=== PATIENT | male | born 1945 | race Caucasian/White ===

== ENCOUNTER → 2020-07-09 11:36 | Outpatient (CLI) | payer MEDICARE, SELFPAY ==
--- NOTE | 2020-07-09 11:57 | DI.CT.S_ITS ---
PROCEDURE: CT ABDOMEN PELVIS WO CON INDICATIONS: Flaccid neuropathic bladder, not elsewhere classified TECHNIQUE: Noncontrast 5 mm thick sections acquired from the diaphragms to the symphysis. 5 mm coronal and sagittal reformats were then performed. For radiation dose reduction, the following was used: automated exposure control, adjustment of mA and/or kV according to patient size. COMPARISON: None. FINDINGS: Image quality: Excellent. ABDOMEN: Lung bases: Lung bases are clear. Heart size is normal. Note is made of several areas of smoothly marginated focal pleural thickening involving the lung bases bilaterally left slightly greater than right. These are not calcified at this time and have an appearance most likely representing pleural plaquing. Solid organs: Liver is normal in size. Gallbladder is partially contracted and appears free of inflammation or calcified stone. . Pancreas is normal in contours. Spleen is normal in size. No adrenal nodules. Kidneys are normal in size, without hydronephrosis or nephrolithiasis. There are several renal cortical water density cysts, right greater than left. These are small to moderate in size. Peritoneum and bowel: Unenhanced bowel loops demonstrate normal wall thickness and caliber. No free fluid or air. Nodes and vessels: No retroperitoneal or mesenteric adenopathy by size criteria. Aorta and inferior vena cava are normal in caliber. Miscellaneous: No ventral hernias. PELVIS: Genitourinary: Bladder wall thickness is normal. Miscellaneous: No inguinal hernias or adenopathy. No evidence of appendicitis. No bladder distension seen. No distal ureteral or bladder calculus found. Bones: No suspicious bony lesions. No vertebral body compression fractures. IMPRESSION: No urinary tract abnormality seen that would suggest presence of urinary tract stones or inflammation. No urinary tract distension is found. Incidental note is made of several plaque-like areas of focal smooth thickening of the pleural surfaces within the lower chest bilaterally. Dictated by: Toney Johnson M.D. on 07/09/2020 at 13:34 Approved by: Toney Johnson M.D. on 07/09/2020 at 13:37
== END ==
PROVIDERS: Family Provider Family Medicine; PCP Family Medicine; Referring Provider Family Medicine; Visit Provider Family Medicine
DX: N31.2 Flaccid neuropathic bladder, not elsewhere classified (principal); K64.1 Second degree hemorrhoids
CPT/HCPCS: 74176; 99213

== ENCOUNTER → 2020-11-19 12:48 | Outpatient (CLI) | payer MEDICARE, SELFPAY ==
[2020-11-19 19:14] LABS: Bacteria Urine None Seen; WBC Urine None Seen (0-5/HPF)
[2020-11-19 19:19] LABS: INR 3.3 (0.9-1.3); Prothrombin Time 38.2 SECONDS (10.1-12.7)
[2020-11-19 19:27] LABS: Add Manual Diff / Slide Review NO; Basophils Absolute Auto 0 /uL (0-100); Basophils Percent Auto 0.7 % (0-2); Eosinophils Absolute Auto 100 /uL (0-450); Hematocrit 53.9 % (41-53); Hemoglobin 17.9 g/dL (13.5-17.5); Lymphocytes Absolute Auto 1300 /uL (1100-4500); Lymphocytes Percent Auto 22.1 % (25-40); Mean Corpuscular HGB Conc 33.2 % (30-36); Mean Corpuscular Volume 96.4 fL (80-100); Monocytes Absolute Auto 500 /uL (0-900); Monocytes Percent Auto 8.2 % (3-14); Neutrophils Absolute Auto 4100 /uL (1500-7000); Platelet Count 193 X10^3/uL (150-400); Red Blood Cell Count 5.59 X10^6/uL (4.5-5.9); Red Cell Distribution Width 13.6 % (11.6-14.8); White Blood Cell Count 6.1 X10^3/uL (4.5-11.0)
[2020-11-19 19:31] LABS: Appearance Urine UA CLEAR; Bilirubin Urine UA NEGATIVE (NEGATIVE); Color Urine UA YELLOW; Glucose Urine UA NEGATIVE (Negative); Ketones Urine UA TRACE (NEGATIVE); Leukocyte Esterase Urine UA NEGATIVE (NEGATIVE); Nitrite Urine UA NEGATIVE (Negative); Occult Blood Urine UA 3+ (Negative); Protein Urine UA 1+ (Negative); Specific Gravity Urine UA >=1.030 (1.000-1.035); Urobilinogen Urine UA 0.2 E.U./dL (0.2)
[2020-11-19 19:36] LABS: Alanine Aminotransferase 27 IU/L (<50); Albumin 4.4 g/dL (3.5-5.0); Albumin Globulin Ratio 1.6 (1.0-2.8); Alkaline Phosphatase 87 U/L (38-126); Aspartate Aminotransferase 28 IU/L (17-59); BUN Creatinine Ratio 33.3 (6-22); Bilirubin Total 1.9 mg/dL (0.2-1.3); Blood Urea Nitrogen 30 mg/dL (9-20); C-Reactive Protein Quant < 0.5 mg/dL (<1.0); Carbon Dioxide 25 mmol/L (22-32); Chloride 103 mmol/L (98-107); Estimated Glomerular Filt Rate > 60.0 mL/min (>60); Globulin 2.8 g/dL (1.7-4.1); Glucose 87 mg/dL (80-110); HEMOLYSIS < 15 (0-50); Lactate Dehydrogenase 440 U/L (313-618); Potassium 4.5 mmol/L (3.4-5.1); Sodium 137 mmol/L (137-145); Total Protein 7.2 g/dL (6.3-8.2)
[2020-11-19 19:42] LABS: Calcium Oxalate Crystals Urine Few; Culture Indicated Urine Cult Not Indicated; Mucus Urine 1+ (Negative); RBC Urine 10-30/HPF (0-5/HPF)
[2020-11-19 20:04] LABS: Thyroid Stimulating Hormone 0.558 uIU/mL (0.47-4.68)
[2020-11-19 20:15] LABS: Hemoglobin A1C% w Est Avg Glu 5.7 % (4.0-6.0)
[2020-11-19 20:25] LABS: Erythrocyte Sedimentation Rate 1 MM/HR (0-15)
[2020-11-21 14:07] LABS: Free Kappa Lt Chains, Serum 22.2 mg/L (3.3-19.4); Free Lambda Lt Chains,Serum 14.2 mg/L (5.7-26.3)
[2020-11-23 16:49] LABS: ANA Screen, IFA Negative (.)
[2020-11-23 17:08] LABS: Immunoglobulin E 187 IU/mL (6-495)
[2020-11-24 13:44] LABS: Alpha-1 Globulin, Ur 1.9 % (.); Beta Globulin, Ur 52.7 % (.); Gamma Globulin, Ur 14.3 % (.); Immunoglobulin A, Serum 186 mg/dL (61-437); Immunoglobulin G,Serum 849 mg/dL (603-1613); Immunoglobulin M, Serum 51 mg/dL (15-143); M-Spike % Comment: % (Not Observed); Urine Total Protein 7.2 mg/dL (Not Estab.)
[2020-11-24 14:08] LABS: Albumin 4.1 g/dL (2.9-4.4); Alpha-1-Globulin 0.3 g/dL (0.0-0.4); Alpha-2-Globulin 0.7 g/dL (0.4-1.0); Gamma Globulin 0.8 g/dL (0.4-1.8); Globulin Total 2.9 g/dL (2.2-3.9)
[2021-01-20 13:56] LABS: Immunoglobulin M, Quantitative 51
[2021-01-20 13:57] LABS: Immunoglobulin G, Quantitative 849
== END ==
PROVIDERS: Family Provider Family Medicine; PCP Family Medicine; Visit Provider Family Medicine
DX: R61 Generalized hyperhidrosis (principal); K64.1 Second degree hemorrhoids
CPT/HCPCS: 80053; 81001; 82784; 82785; 83036; 83615; 83883; 84155; 84156; 84165; 84166; 84443; 85025; 85610; 85651; 86038; 86140; 86334

== ENCOUNTER → 2021-03-01 09:00 | Outpatient (CLI) | payer MEDICARE, SELFPAY ==
[2021-03-01 20:55] LABS: COVID19 - ORCAS (NP or Nasal) Negative (Negative)
== END ==
PROVIDERS: Family Provider Family Medicine; PCP Family Medicine; Visit Provider Family Medicine
DX: Z20.822 Contact with and (suspected) exposure to COVID-19 (principal)
CPT/HCPCS: U0003

== ENCOUNTER → 2021-05-06 09:34 | Outpatient (CLI) | payer MEDICARE, SELFPAY ==
[2021-05-06 19:01] LABS: Uric Acid 6.5 mg/dL (3.5-8.5)
[2021-05-06 19:16] LABS: Add Manual Diff / Slide Review NO; Basophils Absolute Auto 0 /uL (0-100); Basophils Percent Auto 0.5 % (0-2); Eosinophils Absolute Auto 100 /uL (0-450); Eosinophils Percent Auto 0.8 % (2-4); Hematocrit 50.5 % (41-53); Hemoglobin 17.1 g/dL (13.5-17.5); Lymphocytes Absolute Auto 1200 /uL (1100-4500); Lymphocytes Percent Auto 15.2 % (25-40); Mean Corpuscular HGB Conc 33.8 % (30-36); Mean Corpuscular Hemoglobin 32.4 PG (26-34); Mean Corpuscular Volume 95.8 fL (80-100); Monocytes Absolute Auto 700 /uL (0-900); Monocytes Percent Auto 8.8 % (3-14); Neutrophils Absolute Auto 5700 /uL (1500-7000); Neutrophils Percent Auto 74.7 % (50-75); Platelet Count 225 X10^3/uL (150-400); Red Blood Cell Count 5.27 X10^6/uL (4.5-5.9); Red Cell Distribution Width 13.1 % (11.6-14.8); White Blood Cell Count 7.7 X10^3/uL (4.5-11.0)
== END ==
PROVIDERS: Family Provider Family Medicine; PCP Physician Assistant Medical; Visit Provider Family Medicine
DX: D75.1 Secondary polycythemia (principal); M19.029 Primary osteoarthritis, unspecified elbow
CPT/HCPCS: 84550; 85025

== ENCOUNTER → 2021-07-14 13:31 | Outpatient (CLI) | payer MEDICARE, SELFPAY ==
[2021-07-14 19:33] LABS: Free T4, Direct Thyroxine 1.23 ng/dL (0.78-2.19)
[2021-07-14 19:46] LABS: Thyroid Stimulating Hormone 0.603 uIU/mL (0.47-4.68)
[2021-07-15 06:12] LABS: Thyroid Peroxidase Antibodies 8 IU/mL (0-34)
== END ==
PROVIDERS: Family Provider Family Medicine; PCP Physician Assistant Medical; Visit Provider Acupuncturist
DX: I10 Essential (primary) hypertension (principal); Z13.29 Encounter for screening for other suspected endocrine disorder
CPT/HCPCS: 84439; 84443; 84481; 86376

== ENCOUNTER → 2021-07-23 11:32 | Outpatient (CLI) | payer MEDICARE, SELFPAY ==
[2021-07-23 19:41] LABS: Add Manual Diff / Slide Review NO; Basophils Absolute Auto 0 /uL (0-100); Basophils Percent Auto 0.5 % (0-2); Eosinophils Absolute Auto 100 /uL (0-450); Eosinophils Percent Auto 1.3 % (2-4); Hematocrit 51.3 % (41-53); Hemoglobin 17.3 g/dL (13.5-17.5); Lymphocytes Absolute Auto 1400 /uL (1100-4500); Mean Corpuscular HGB Conc 33.7 % (30-36); Monocytes Absolute Auto 500 /uL (0-900); Monocytes Percent Auto 9.8 % (3-14); Neutrophils Absolute Auto 3200 /uL (1500-7000); Neutrophils Percent Auto 61.4 % (50-75); Platelet Count 197 X10^3/uL (150-400); Red Cell Distribution Width 13.8 % (11.6-14.8); White Blood Cell Count 5.2 X10^3/uL (4.5-11.0)
[2021-07-23 19:44] LABS: Alanine Aminotransferase 60 IU/L (<50); Albumin 4.1 g/dL (3.5-5.0); Albumin Globulin Ratio 1.6 (1.0-2.8); Alkaline Phosphatase 101 U/L (38-126); Aspartate Aminotransferase 45 IU/L (17-59); BUN Creatinine Ratio 28.9 (6-22); Bilirubin Total 1.4 mg/dL (0.2-1.3); Blood Urea Nitrogen 26 mg/dL (9-20); C-Reactive Protein Quant < 0.5 mg/dL (<1.0); Calcium 9.7 mg/dL (8.4-10.2); Carbon Dioxide 29 mmol/L (22-32); Chloride 104 mmol/L (98-107); Estimated Glomerular Filt Rate > 60.0 mL/min (>60); Globulin 2.5 g/dL (1.7-4.1); Glucose 108 mg/dL (80-110); HEMOLYSIS 24 (0-50); Potassium 4.9 mmol/L (3.4-5.1); Sodium 137 mmol/L (137-145); Total Protein 6.6 g/dL (6.3-8.2)
[2021-07-23 19:59] LABS: Erythrocyte Sedimentation Rate 1 MM/HR (0-15)
[2021-07-23 21:23] LABS: Vitamin B12 868 pg/mL (239-931)
[2021-07-27 12:11] LABS: Ethyl Glucuronide Screen Negative ng/mL (Cutoff=500)
== END ==
PROVIDERS: Family Provider Family Medicine; PCP Physician Assistant Medical; Visit Provider Physician Assistant Medical
DX: I10 Essential (primary) hypertension (principal); D75.1 Secondary polycythemia; R53.83 Other fatigue; Z13.39 Encounter for screening examination for other mental health and behavioral disorders
CPT/HCPCS: 80053; 80321; 82607; 84443; 85025; 85651; 86140

== ENCOUNTER → 2021-08-03 14:56 | Outpatient (CLI) | payer MEDICARE, SELFPAY ==
[2021-08-06 12:38] LABS: Fecal Immunochemical Test Negative (Negative)
== END ==
PROVIDERS: Family Provider Family Medicine; PCP Physician Assistant Medical; Visit Provider Physician Assistant Medical
DX: R53.83 Other fatigue (principal)
CPT/HCPCS: 82274

== ENCOUNTER → 2022-06-02 13:25 | Outpatient (CLI) | payer MEDICARE, SELFPAY ==
[2022-06-02 20:06] LABS: Add Manual Diff / Slide Review NO; Basophils Absolute Auto 0 /uL (0-100); Basophils Percent Auto 0.6 % (0-2); Eosinophils Absolute Auto 100 /uL (0-450); Eosinophils Percent Auto 1.4 % (2-4); Hematocrit 51.4 % (41-53); Hemoglobin 17.6 g/dL (13.5-17.5); Lymphocytes Absolute Auto 1400 /uL (1100-4500); Lymphocytes Percent Auto 25.3 % (25-40); Mean Corpuscular HGB Conc 34.2 % (30-36); Mean Corpuscular Hemoglobin 32.9 PG (26-34); Monocytes Absolute Auto 500 /uL (0-900); Monocytes Percent Auto 9.8 % (3-14); Neutrophils Absolute Auto 3500 /uL (1500-7000); Neutrophils Percent Auto 62.9 % (50-75); Platelet Count 187 X10^3/uL (150-400); Red Blood Cell Count 5.35 X10^6/uL (4.5-5.9); Red Cell Distribution Width 13.4 % (11.6-14.8); White Blood Cell Count 5.5 X10^3/uL (4.5-11.0)
[2022-06-02 20:19] LABS: TSH w/ Reflex to FT4 0.77 uIU/mL (0.47-4.68)
[2022-06-02 20:37] LABS: Vitamin B12 720 pg/mL (239-931)
== END ==
PROVIDERS: Family Provider Family Medicine; PCP Family Medicine; Visit Provider Family Medicine
DX: M54.50 Low back pain, unspecified (principal); I48.20 Chronic atrial fibrillation, unspecified; G89.29 Other chronic pain; R53.83 Other fatigue
CPT/HCPCS: 82607; 84443; 85025

== ENCOUNTER → 2022-12-15 09:28 | Outpatient (CLI) | payer MEDICARE, SELFPAY ==
[2022-12-15 20:11] LABS: BUN Creatinine Ratio 26.1 (6-22); Blood Urea Nitrogen 24 mg/dL (9-20); Calcium 9.4 mg/dL (8.4-10.2); Carbon Dioxide 32 mmol/L (22-32); Chloride 100 mmol/L (98-107); Cholesterol 201 mg/dL (140-199); Estimated Glomerular Filt Rate > 60 mL/min (>60); Glucose 94 mg/dL (80-110); HDL Cholesterol 78 mg/dL (40-60); HEMOLYSIS 29 (0-50); LDL Cholesterol Calculated 103 mg/dL (<100); Potassium 4.3 mmol/L (3.4-5.1); Sodium 138 mmol/L (137-145); Triglycerides 100 mg/dL (35-150)
[2022-12-15 20:14] LABS: Hematocrit 51.4 % (41-53); Hemoglobin 17.7 g/dL (13.5-17.5); Mean Corpuscular HGB Conc 34.3 % (30-36); Mean Corpuscular Hemoglobin 33.1 PG (26-34); Mean Corpuscular Volume 96.3 fL (80-100); Platelet Count 197 X10^3/uL (150-400); Red Blood Cell Count 5.34 X10^6/uL (4.5-5.9)
[2022-12-15 20:31] LABS: Basophils Percent Auto 0.4 % (0-2); Lymphocytes Absolute Auto 1600 /uL (1100-4500); Lymphocytes Percent Auto 27.1 % (25-40); Monocytes Absolute Auto 800 /uL (0-900); Monocytes Percent Auto 13.4 % (3-14); Neutrophils Absolute Auto 3400 /uL (1500-7000); Neutrophils Percent Auto 57.1 % (50-75)
[2022-12-15 20:32] LABS: Eosinophils Absolute Auto 100 /uL (0-450)
[2022-12-15 20:36] LABS: RBC Morphology Normal Morphology
[2022-12-15 20:38] LABS: Add Manual Diff / Slide Review NO
[2022-12-15 20:44] LABS: Prostate Specific Antigen Scrn 4.05 ng/mL (0.1-4.0)
[2022-12-15 20:56] LABS: TSH w/ Reflex to FT4 0.79 uIU/mL (0.47-4.68)
[2022-12-15 21:02] LABS: Vitamin B12 927 pg/mL (239-931)
== END ==
PROVIDERS: Family Provider Family Medicine; PCP Family Medicine; Visit Provider Family Medicine
DX: F51.05 Insomnia due to other mental disorder (principal); F32.1 Major depressive disorder, single episode, moderate; Z12.5 Encounter for screening for malignant neoplasm of prostate; I10 Essential (primary) hypertension; R35.1 Nocturia; G25.81 Restless legs syndrome; I48.20 Chronic atrial fibrillation, unspecified; G47.00 Insomnia, unspecified; D75.1 Secondary polycythemia; F99 Mental disorder, not otherwise specified
CPT/HCPCS: 80048; 80061; 82607; 84443; 85007; 85025; G0103

== ENCOUNTER → 2023-04-20 11:54 | Outpatient (CLI) | payer MEDICARE, SELFPAY ==
--- NOTE | 2023-04-20 11:56 | DI.MRI.S_ITS ---
PROCEDURE: MR LUMBAR SPINE WO CON INDICATIONS: low back pain with radiation TECHNIQUE: Noncontrast sagittal T1 spin echo and T2 fast echo, sagittal STIR, and T2 fast spin echo through the lumbar spine. In cases with scoliosis, additional coronal T2 fast spin echo may be performed. COMPARISON: None. FINDINGS: Image quality: Excellent. Alignment and Curvature: There is normal bony alignment. Bone Marrow: Modic type 1 edematous endplate changes noted L3-4 Spinal Cord: Conus medullaris terminates at the L1 level. Visualized cord demonstrates normal signal and size. Paraspinous Soft Tissues: No paravertebral masses. T12-L1: Normal appearance. L1-L2: Normal appearance. L2-3: Disc space narrowing and circumferential disc bulge. Mild central stenosis. No foraminal stenosis. High-intensity zone in the posterior annulus reflects annular fissure or tear. L3-4: Disc space narrowing with circumferential disc bulge, hypertrophic facet joints and ligamentum flavum laxity combined result in moderate central stenosis. Severe right and moderate left foraminal stenosis L4-5: Disc space narrowing with circumferential disc bulge and hypertrophic facet joints results in moderate central stenosis. Moderate bilateral foraminal stenosis. L5-S1: Disc space narrowing and circumferential disc bulge the bases the right lateral recess and results in mild central stenosis. Hypertrophic facet joints associated with severe bilateral foraminal stenosis IMPRESSION: Multilevel degenerative disc disease and arthropathy results in varying degrees of central and foraminal stenosis including moderate central stenosis L3-4 and L4-5 with severe foraminal stenosis L3-4 and L5-S1 Approved by: Ayo Delaney M.D. on 04/20/2023 at 14:49
== END ==
PROVIDERS: Family Provider Family Medicine; PCP Family Medicine; Referring Provider Family Medicine; Visit Provider Family Medicine
DX: M51.16 Intervertebral disc disorders with radiculopathy, lumbar region (principal); M51.17 Intervertebral disc disorders with radiculopathy, lumbosacral region; M47.26 Other spondylosis with radiculopathy, lumbar region; M47.27 Other spondylosis with radiculopathy, lumbosacral region; M48.061 Spinal stenosis, lumbar region without neurogenic claudication; M48.07 Spinal stenosis, lumbosacral region; M54.50 Low back pain, unspecified; G89.29 Other chronic pain
CPT/HCPCS: 72148

== ENCOUNTER → 2023-07-25 13:57 | Outpatient (CLI) | payer MEDICARE, SELFPAY ==
[2023-07-25 20:16] LABS: Add Manual Diff / Slide Review NO; Basophils Absolute Auto 0 /uL (0-100); Basophils Percent Auto 0.4 % (0-2); Eosinophils Absolute Auto 100 /uL (0-450); Eosinophils Percent Auto 1.7 % (2-4); Hemoglobin 16.3 g/dL (13.5-17.5); Lymphocytes Absolute Auto 1500 /uL (1100-4500); Lymphocytes Percent Auto 22.3 % (25-40); Mean Corpuscular HGB Conc 33.9 % (30-36); Mean Corpuscular Hemoglobin 32.8 PG (26-34); Mean Corpuscular Volume 96.9 fL (80-100); Monocytes Absolute Auto 600 /uL (0-900); Monocytes Percent Auto 8.8 % (3-14); Neutrophils Absolute Auto 4400 /uL (1500-7000); Neutrophils Percent Auto 66.8 % (50-75); Platelet Count 188 X10^3/uL (150-400); Red Blood Cell Count 4.96 X10^6/uL (4.5-5.9); Red Cell Distribution Width 13.5 % (11.6-14.8); White Blood Cell Count 6.5 X10^3/uL (4.5-11.0)
[2023-07-25 20:18] LABS: BUN Creatinine Ratio 43.2 (6-22); Blood Urea Nitrogen 32 mg/dL (9-20); Calcium 9.1 mg/dL (8.4-10.2); Carbon Dioxide 28 mmol/L (22-32); Chloride 104 mmol/L (98-107); Estimated Glomerular Filt Rate > 60 mL/min (>60); Glucose 101 mg/dL (80-110); HEMOLYSIS 20 (0-50); Potassium 4.3 mmol/L (3.4-5.1); Sodium 138 mmol/L (137-145)
[2023-07-25 20:25] LABS: NT-proBNP (BNP-Adult 18+) 1290 pg/mL (<450)
[2023-07-25 20:32] LABS: Monotest Negative (Negative)
[2023-07-25 20:47] LABS: TSH w/ Reflex to FT4 0.41 uIU/mL (0.47-4.68)
[2023-07-25 21:18] LABS: Free T4, Direct Thyroxine 1.26 ng/dL (0.78-2.19)
== END ==
PROVIDERS: Family Provider Family Medicine; PCP Family Medicine; Visit Provider Family Medicine
DX: R06.02 Shortness of breath (principal); Z79.01 Long term (current) use of anticoagulants; R00.0 Tachycardia, unspecified; R60.0 Localized edema
CPT/HCPCS: 80048; 83880; 84439; 84443; 85025; 86318

== ENCOUNTER → 2023-08-02 09:53 | Outpatient (CLI) | payer MEDICARE, SELFPAY ==
[2023-08-02 19:35] LABS: BUN Creatinine Ratio 37.9 (6-22); Blood Urea Nitrogen 36 mg/dL (9-20); Calcium 9.5 mg/dL (8.4-10.2); Carbon Dioxide 34 mmol/L (22-32); Chloride 102 mmol/L (98-107); Estimated Glomerular Filt Rate > 60 mL/min (>60); Glucose 85 mg/dL (80-110); HEMOLYSIS 20 (0-50); Potassium 4.1 mmol/L (3.4-5.1); Sodium 139 mmol/L (137-145)
[2023-08-02 19:39] LABS: NT-proBNP (BNP-Adult 18+) 897 pg/mL (<450)
== END ==
PROVIDERS: Family Provider Family Medicine; PCP Family Medicine; Visit Provider Family Medicine
DX: I50.21 Acute systolic (congestive) heart failure (principal); R06.02 Shortness of breath
CPT/HCPCS: 80048; 83880

== ENCOUNTER → 2023-09-07 13:42 | Outpatient (CLI) | payer MEDICARE, SELFPAY ==
[2023-09-07 23:16] LABS: HEMOLYSIS 16 (0-50); Prostate Specific Antigen 3.74 ng/mL (0.10-4.00)
[2023-09-07 23:33] LABS: BUN Creatinine Ratio 36.9 (6-22); Blood Urea Nitrogen 31 mg/dL (9-20); Calcium 9.7 mg/dL (8.4-10.2); Carbon Dioxide 26 mmol/L (22-32); Chloride 104 mmol/L (98-107); Estimated Glomerular Filt Rate > 60 mL/min (>60); Glucose 100 mg/dL (80-110); Potassium 4.8 mmol/L (3.4-5.1); Sodium 137 mmol/L (137-145)
[2023-09-07 23:42] LABS: NT-proBNP (BNP-Adult 18+) 1220 pg/mL (<450)
== END ==
PROVIDERS: Family Provider Family Medicine; PCP Family Medicine; Visit Provider Family Medicine
DX: R06.02 Shortness of breath (principal); R97.20 Elevated prostate specific antigen [PSA]; I50.9 Heart failure, unspecified; Z79.891 Long term (current) use of opiate analgesic; I10 Essential (primary) hypertension; Z79.899 Other long term (current) drug therapy; Z79.01 Long term (current) use of anticoagulants; D75.1 Secondary polycythemia
CPT/HCPCS: 80048; 83880; 84153

== ENCOUNTER → 2023-09-08 14:15 | Outpatient (CLI) | payer MEDICARE, SELFPAY ==
--- NOTE | 2023-09-08 14:18 | DI.ECHO.S_ITS ---
[facility] +---------+ [facility] +---------+ : : [address] : : : : [id number] : : : : Phone: [phone]+ Echocardiogram Report + + :Name: BARRETT MOORE Study Date: 09/08/2023 Height: 70 in : :[facility] ReadingLocation: Weight: 165 lb : : Gender: Male BSA: 1.9 m2 : :: 1945 Age: 77 yrs BP: 149/94 mmHg: :Reason For Study: TACHYCARDIA : :Ordering Physician: SHUBHAM, : :SHIRIN Performed By: Aaron Johnson : :Referring: SHIRIN JALLOH : + + Interpretation Summary The patient was in atrial fibrillation with heart rates between 59-89 bpm during the exam. The ejection fraction is estimated to be 55-60%. Grade II diastolic dysfunction. The right ventricular systolic function is normal. Pulmonary artery pressures cannot be estimated because of the lack of a measurable TR jet velocity. Both atria are mildly dilated. No significant valvular abnormality. Procedure: A two-dimensional transthoracic echocardiogram with color flow and Doppler was performed. The study quality was technically adequate. Comparison is made with the echocardiogram of 08/19/2019. The patient was in atrial fibrillation with heart rates between 59-89 bpm during the exam. Left Ventricle: The left ventricle is normal in size. Left ventricular wall thickness is borderline increased. The ejection fraction is estimated to be 55-60%. Grade II diastolic dysfunction. Right Ventricle: The right ventricle is normal size. The right ventricular systolic function is normal. Atria: The left atrium is mildly dilated. Both atria are mildly dilated. The interatrial septum grossly appears intact with no obvious evidence for an atrial septal defect. Mitral Valve: The mitral valve is normal in structure and function. There is no mitral valve stenosis. There is mild mitral regurgitation. Aortic Valve: The aortic valve is trileaflet. There is no aortic valve stenosis. There is trace aortic regurgitation. Tricuspid Valve: The tricuspid valve is normal in structure and function. There is no tricuspid stenosis. There is mild tricuspid regurgitation. Pulmonary artery pressures cannot be estimated because of the lack of a measurable TR jet velocity. Pulmonic Valve: The pulmonic valve is not well visualized. There is no pulmonic valvular stenosis. There is a trace or physiologic amount of pulmonic regurgitation. Great Vessels: The aortic root is moderately dilated. The dimensions of the ascending aorta are normal. The inferior vena cava was not visualized. Pericardium/ Pleura There is no pericardial effusion. There is no pleural effusion. MMode/2D Measurements & Calculations LVIDd: 4.1 cm LVOT diam: 2.4 cm LVIDs: 2.5 cm Ao root diam: 4.4 cm FS: 38.8 % asc Aorta Diam: 3.5 cm IVSd: 1.1 cm Ao Arch Diam (Prox Trans): 2.9 cm LVPWd: 1.2 cm LV higginbotham. diameter/BSA (cm/m^2): 2.1 LV sys. diameter/BSA (cm/m^2): 1.3 LA A2 area: 22.1 cm2 RA long axis: 5.4 cm LA A4 area: 18.4 cm2 RA area: 19.2 cm2 LA length (vol): 5.0 cm RA vol: 58.3 ml LA vol: 68.4 ml RA : 30.3 ml/m2 LA vol index: 35.6 ml/m2 RVD1 (basal): 3.8 cm RVD2 (mid): 3.1 cm TAPSE: 1.8 cm Doppler Measurements & Calculations Ao V2 max: 99.3 cm/sec LVOT Max Thomas: 63.0 cm/sec Ao V2 mean: 73.5 cm/sec LV V1 max P.6 mmHg Ao max P.0 mmHg LV V1 VTI: 13.8 cm Ao mean P.4 mmHg CHANO(I,D): 3.2 cm2 Ao V2 VTI: 19.5 cm CHANO(V,D): 2.9 cm2 sev ratio: 0.71 CHANO indexed to BSA (cm^2/m^2): 1.7 MV E max thomas: 79.3 cm/sec TR max thomas: 286.9 cm/sec MV A max thomas: 20.2 cm/sec TR max P.9 mmHg MV E/A: 3.9 PA V2 max: 87.7 cm/sec Med Peak E' Thomas: 7.1 cm/sec PA V2 mean: 59.8 cm/sec E/E' med: 11.2 PA mean P.6 mmHg Lat Peak E' Thomas: 9.5 cm/sec PA pr(Accel): 36.2 mmHg E/E' lat: 8.3 E/e' average: 9.8 MV dec time: 0.15 sec [facility] 62.4 ml Reading Physician:PM
== END ==
PROVIDERS: Family Provider Family Medicine; PCP Family Medicine; Referring Provider Family Medicine; Visit Provider Family Medicine
DX: I08.1 Rheumatic disorders of both mitral and tricuspid valves (principal); I77.810 Thoracic aortic ectasia; I50.21 Acute systolic (congestive) heart failure; R00.0 Tachycardia, unspecified; R60.0 Localized edema; R06.02 Shortness of breath
CPT/HCPCS: 93306

== ENCOUNTER → 2023-11-29 13:05 | Outpatient (CLI) | payer MEDICARE, SELFPAY ==
[2023-11-29 19:23] LABS: Add Manual Diff / Slide Review NO; Basophils Absolute Auto 0 /uL (0-100); Basophils Percent Auto 0.4 % (0-2); Eosinophils Absolute Auto 0 /uL (0-450); Eosinophils Percent Auto 0.6 % (2-4); Hemoglobin 17.1 g/dL (13.5-17.5); Lymphocytes Absolute Auto 1500 /uL (1100-4500); Lymphocytes Percent Auto 20.3 % (25-40); Mean Corpuscular HGB Conc 34.2 % (30-36); Mean Corpuscular Hemoglobin 33.2 PG (26-34); Monocytes Absolute Auto 700 /uL (0-900); Monocytes Percent Auto 9.7 % (3-14); Neutrophils Absolute Auto 5000 /uL (1500-7000); Platelet Count 205 X10^3/uL (150-400); Red Blood Cell Count 5.15 X10^6/uL (4.5-5.9); Red Cell Distribution Width 14.1 % (11.6-14.8); White Blood Cell Count 7.3 X10^3/uL (4.5-11.0)
[2023-11-29 19:30] LABS: BUN Creatinine Ratio 30.3 (6-22); Blood Urea Nitrogen 27 mg/dL (9-20); Calcium 10.1 mg/dL (8.4-10.2); Carbon Dioxide 30 mmol/L (22-32); Chloride 104 mmol/L (98-107); Estimated Glomerular Filt Rate > 60 mL/min (>60); Glucose 93 mg/dL (80-110); HEMOLYSIS 25 (0-50); Potassium 4.8 mmol/L (3.4-5.1); Sodium 138 mmol/L (137-145)
[2023-11-29 20:06] LABS: TSH w/ Reflex to FT4 0.41 uIU/mL (0.47-4.68)
[2023-11-29 20:30] LABS: Free T4, Direct Thyroxine 1.15 ng/dL (0.78-2.19)
== END ==
PROVIDERS: Family Provider Family Medicine; PCP Family Medicine; Visit Provider Family Medicine
DX: R60.0 Localized edema (principal); I50.9 Heart failure, unspecified; I48.20 Chronic atrial fibrillation, unspecified; D75.1 Secondary polycythemia; I45.2 Bifascicular block; R06.09 Other forms of dyspnea; I10 Essential (primary) hypertension; Z79.01 Long term (current) use of anticoagulants
CPT/HCPCS: 80048; 84439; 84443; 85025

== ENCOUNTER → 2024-03-29 08:59 | Outpatient (CLI) | payer MEDICARE, SELFPAY ==
[2024-03-29 19:01] LABS: BUN Creatinine Ratio 33.7 (6-22); Blood Urea Nitrogen 31 mg/dL (9-20); Calcium 10.4 mg/dL (8.4-10.2); Carbon Dioxide 25 mmol/L (22-32); Chloride 101 mmol/L (98-107); Cholesterol 208 mg/dL (140-199); Estimated Glomerular Filt Rate > 60 mL/min (>60); Glucose 91 mg/dL (80-110); HDL Cholesterol 93 mg/dL (40-60); HEMOLYSIS 46 (0-50); LDL Cholesterol Calculated 100 mg/dL (<100); Potassium 4.5 mmol/L (3.4-5.1); Sodium 138 mmol/L (137-145); Triglycerides 73 mg/dL (35-150)
[2024-03-29 19:04] LABS: Add Manual Diff / Slide Review NO; Basophils Absolute Auto 100 /uL (0-100); Eosinophils Absolute Auto 100 /uL (0-450); Eosinophils Percent Auto 1.7 % (2-4); Hematocrit 55.1 % (41-53); Hemoglobin 18.4 g/dL (13.5-17.5); Lymphocytes Absolute Auto 1500 /uL (1100-4500); Lymphocytes Percent Auto 25.7 % (25-40); Mean Corpuscular HGB Conc 33.4 % (30-36); Mean Corpuscular Hemoglobin 32.5 PG (26-34); Mean Corpuscular Volume 97.4 fL (80-100); Monocytes Absolute Auto 600 /uL (0-900); Monocytes Percent Auto 11.3 % (3-14); Neutrophils Absolute Auto 3400 /uL (1500-7000); Neutrophils Percent Auto 60.3 % (50-75); Platelet Count 207 X10^3/uL (150-400); Red Blood Cell Count 5.66 X10^6/uL (4.5-5.9); Red Cell Distribution Width 13.2 % (11.6-14.8); White Blood Cell Count 5.7 X10^3/uL (4.5-11.0)
[2024-03-29 19:32] LABS: Prostate Specific Antigen 3.28 ng/mL (0.10-4.00)
== END ==
PROVIDERS: Family Provider Family Medicine; PCP Family Medicine; Referring Provider Family Medicine; Visit Provider Family Medicine
DX: I48.20 Chronic atrial fibrillation, unspecified (principal); Z79.899 Other long term (current) drug therapy; Z79.891 Long term (current) use of opiate analgesic; I50.21 Acute systolic (congestive) heart failure; R06.09 Other forms of dyspnea; R97.20 Elevated prostate specific antigen [PSA]; D75.1 Secondary polycythemia; I11.0 Hypertensive heart disease with heart failure
CPT/HCPCS: 80048; 80061; 84153; 85025

== ENCOUNTER → 2024-04-29 13:03 | Outpatient (CLI) | payer MEDICARE, SELFPAY ==
[2024-04-29 19:25] LABS: HEMOLYSIS 38 (0-50); Iron 137 ug/dL (49-181)
[2024-04-29 19:41] LABS: Percent Iron Saturation 42 % (20-50); Total Iron Binding Capacity 326 ug/dL (261-462); Transferrin 302 mg/dL (206-381)
== END ==
PROVIDERS: Family Provider Family Medicine; PCP Family Medicine; Visit Provider Family Medicine
DX: D75.1 Secondary polycythemia (principal); E83.52 Hypercalcemia; J31.0 Chronic rhinitis
CPT/HCPCS: 82310; 82785; 83540; 83550; 83970; 86003

== ENCOUNTER → 2024-05-13 12:45 | Outpatient (CLI) | payer MEDICARE, SELFPAY ==
--- NOTE | 2024-05-13 12:46 | DI.MRI.S_ITS ---
PROCEDURE: MR LUMBAR SPINE WO CON INDICATIONS: lumbar pain and radicular symptopms TECHNIQUE: Noncontrast sagittal T1 spin echo and T2 fast echo, sagittal STIR, and T2 fast spin echo through the lumbar spine. In cases with scoliosis, additional coronal T2 fast spin echo may be performed. COMPARISON: [facility], MR, MR LUMBAR SPINE WO CON, 04/20/2023, 12:33. FINDINGS: Image quality: Excellent. Alignment and Curvature: There is straightening of normal lumbar lordosis. Very mild leftward curvature of lower lumbar spine with apex at L4 level is also seen. Bone Marrow: There is no marrow edema. No acute vertebral body compression fractures. Spinal Cord: Conus medullaris terminates at the L1 level. Visualized cord demonstrates normal signal and size. Paraspinous Soft Tissues: No paravertebral masses. T12-L1: Normal appearance. L1-L2: Normal appearance. L2-L3: Disc desiccation and loss of disc height. Diffuse disc bulge and bilateral facet arthrosis with hypertrophy of ligamentum flavum causing [id number] central canal stenosis and moderate to severe bilateral neural foraminal narrowing worse on the left side. Bulging disc likely contacting left L2 nerve root at this level. L3-L4: Loss of disc height and disc desiccation. Broad-based disc bulge and bilateral facet arthrosis with moderate central canal stenosis and moderate to severe bilateral neural foraminal narrowing. Bulging disc is seen contacting bilateral L3 nerve roots. L4-L5: Loss of disc height and degenerative endplate changes are seen. Broad-based disc bulge and bilateral facet arthrosis with hypertrophy of ligamentum flavum. There is moderate to severe central canal stenosis and right worse than left bilateral neural foraminal narrowing. Bulging disc likely contacting bilateral L4 and L5 nerve roots. L5-S1: Loss of disc height and disc desiccation. Diffuse disc bulge and bilateral facet arthrosis with mild central canal stenosis and severe right-sided neural foraminal narrowing. Moderate to severe left-sided neural foraminal narrowing is also seen. Bulging disc likely contacting bilateral L5 nerve roots. IMPRESSION: 1. Straightening of normal lumbar lordosis. No marrow edema. No acute compression fracture. Very mild leftward curvature of lumbar spine centered at L4 level. 2. Moderate degenerative disc disease throughout lumbar spine causing various degrees of central canal stenosis and bilateral neural foraminal narrowing as described in detail above, unchanged or slightly worsened compared to previous study in 2022. Dictated by: Harris Matute M.D. on 05/13/2024 at 18:53 Approved by: Harris Matute M.D. on 05/13/2024 at 18:57
== END ==
LOC: MRI 12:45
PROVIDERS: Family Provider Family Medicine; PCP Family Medicine; Referring Provider Family Medicine; Visit Provider Family Medicine
DX: M48.062 Spinal stenosis, lumbar region with neurogenic claudication (principal); M48.07 Spinal stenosis, lumbosacral region; M51.369 Other intervertebral disc degeneration, lumbar region without mention of lumbar back pain or lower extremity pain; M51.379 Other intervertebral disc degeneration, lumbosacral region without mention of lumbar back pain or lower extremity pain; M47.816 Spondylosis without myelopathy or radiculopathy, lumbar region; M47.817 Spondylosis without myelopathy or radiculopathy, lumbosacral region
CPT/HCPCS: 72148

== ENCOUNTER 2024-07-16 13:29 | Outpatient (CLI) | payer MEDICARE, SELFPAY ==
[2024-07-16] VITALS (8 sets, daily range): BP systolic 108–149; BP diastolic 67–88; PULSE 62–85; RESP 14–18; TEMP 36.1; O2SAT 95–99
--- NOTE | 2024-07-16 13:32 | DI.RAD.S_ITS ---
PROCEDURE: PAIN L/S TRANSFORAM INJECT NIGEL COMPARISON: None. INDICATIONS: BILATERAL L4/5 TF JAVIER FINDINGS: Needle and contrast localization overlying L4-5 bilaterally. Multilevel degenerative changes. IMPRESSION: Contrast and needle localization as above. Dictated by: Maggy Martin M.D. on 07/17/2024 at 12:54 Approved by: Maggy Martin M.D. on 07/17/2024 at 12:55
[2024-07-16] MEDS: MIDAZOLAM 2 MG/2 ML VIAL IV (15:57)
[2024-07-16] MEDS: BUPIVACAINE 0.25% (PF) VIAL 2 ML INJ (16:02)
[2024-07-16] MEDS: DEXAMETHASONE 10 MG/ML VIAL 20 MG INJ (16:03)
[2024-07-16] MEDS: BETAMETHASONE 30 MG/5 ML MDV 12 MG INJ (16:03)
[2024-07-16] MEDS: BETAMETHASONE 30 MG/5 ML MDV 6 MG INJ (16:04)
[2024-07-16] MEDS: iopamidoL 15 ML VIAL 3 ML INJ (16:04)
--- NOTE | 2024-07-16 16:19 | PM.PROC.IR.1 ---
Date/Time/Diagnoses Date of procedure: 07/16/24 Time of procedure: 16:19 Pre-procedure diagnosis: 1. FORAMINAL STENOSIS WITH LE SYMPTOMS Procedure Notes Procedure: 1. FLUOROSCOPICALLY GUIDED CONTRAST CONTROLLED TRANSFORAMINAL EPIDURAL STEROID INJECTION - BILATERAL L4/5 TFESI Indications: Geo is referred by Dr. Maldonado for treatment of Foraminal Stenosis with bilateral LE Symptoms Physician: Usman Sanchez Total Fluoroscopy time (seconds): 20 Total sedation minutes: 15 Complications: none Procedure in detail & Post-procedure care: FINDINGS Foraminal Nerve Root Compression secondary to disc disease and facet hypertrophy DESCRIPTION OF PROCEDURE Following review of allergy and review of potential side effects and complications, including, but not necessarily limited to, infection, allergic reaction, local tissue breakdown, stroke, temporary or permanent nerve injury, paralysis, and possible , the patient indicated that the patient understood and agreed to proceed. An informed consent document was signed by the patient, witnessed by a nurse, and placed in the patient's chart. Additionally, other treatment options including medications, modalities, and physical therapy were reviewed with the patient. After review of previous anaesthesic history and IV conscious sedation the patient was deemed safe to proceed with today?s procedure with IV conscious sedation as ASA class II designation. Safety time-out was performed to confirm patient ID, procedure to be performed and site of procedure. IV sedation was accomplished with a combination of 2mg of Versed was administered by the RN after DO order, titrated to patient comfort during the course of the procedure while the patient remained responsive to all verbal commands In the prone position following sterile prep and drape of the lumbar region, the right L4/5 posterior neuroforamen was identified fluoroscopically. The skin was anesthetized via a 25-gauge 1.5-inch needle with 1% lidocaine solution. At this point, a 25-gauge 3.5-inch spinal needle was atraumatically introduced and advanced under fluoroscopic guidance through the posterior right L4/5 neuroforamen to approximately the anterior aspect of the canal. Depth was confirmed on lateral view. Following negative aspiration, injection of approximately 1.5cc of Isovue 200 under live fluoroscopy in the AP view confirmed excellent flow along the nerve root, into the epidural space without vascular or intrathecal uptake observed Radiological data, including multiple fluoroscopic views of the lumbosacral spine, reveal a spinal needle at the right L4/5 posterior neuroforamen. Subsequent views show flow of contrast material flowing superiorly and inferiorly along the nerve root confirming epidural flow. Subsequently, a test dose of 1.5cc of 1% lidocaine solution was administered and patient was observed for two minutes for signs or symptoms of complications, including abdominal pain, shortness of breath, bilateral upper or lower extremity weakness, nausea and vomiting, prior to steroid injection. At this point, a total of 2cc or 10mg of dexamethasone and 6mg betamethasone was injected without incident. Attention was then refocused to the left L4/5 level where the identical procedure was replicated. The procedure tolerated the procedure well without signs or symptoms of complications prior to transfer to the recovery area continued monitoring without incident. The patient was then transferred to the recovery area where they were observed for an appropriate time after the injection. The patient reported a VAS score of 8 prior to the procedure and a post-procedure VAS of 1. POST OP INSTRUCTIONS The patient was provided a Pain Log to continue to record their response to the target-specific procedure prior to follow-up visit with their referring physician. Additionally, specific post-injection care instructions and a contact number to our office were provided if concerns arise regarding possible complications associated with the procedure are suspected.
== END 2024-07-16 16:31 | disposition home or self-care (01) ==
LOC: RAD 13:31
PROVIDERS: Family Provider Family Medicine; PCP Family Medicine; Referring Provider Physical Medicine & Rehabilitation; Visit Provider Physical Medicine & Rehabilitation
DX: M48.061 Spinal stenosis, lumbar region without neurogenic claudication (principal); M51.16 Intervertebral disc disorders with radiculopathy, lumbar region; M47.26 Other spondylosis with radiculopathy, lumbar region
CPT/HCPCS: 64483; 99152; J0702; J1100; J2250; J3490

== ENCOUNTER 2024-08-27 12:16 | Outpatient (CLI) | payer MEDICARE, SELFPAY ==
[2024-08-27] VITALS (8 sets, daily range): BP systolic 126–157; BP diastolic 69–99; PULSE 64–82; RESP 16–18; TEMP 36.7; O2SAT 97–99
[2024-08-27] MEDS: MIDAZOLAM 2 MG/2 ML VIAL IV (13:30)
[2024-08-27] MEDS: BUPIVACAINE 0.25% (PF) VIAL 2 ML INJ (13:35)
[2024-08-27] MEDS: iopamidoL 15 ML VIAL 3 ML INJ (13:35)
[2024-08-27] MEDS: BETAMETHASONE 30 MG/5 ML MDV 12 MG INJ (13:35)
[2024-08-27] MEDS: DEXAMETHASONE 10 MG/ML VIAL INJ (13:36)
--- NOTE | 2024-08-27 13:47 | P.PCN_ITS ---
Date/Time/Diagnoses Date of procedure: 08/27/24 Time of procedure: 13:47 Pre-procedure diagnosis: 1. HNP WITH RADICULAR FEATURES, 2. MULTILEVEL CENTRAL STENOSIS, Post-procedure diagnosis: same Procedure Notes Procedure: 1. FLUOROSCOPICALLY GUIDED CONTRAST CONTROLLED INTERLAMINAR EPIDURAL STEROID INJECTION -L4/5 Indications: Kel is referred by Dr. Mladonado for treatment of Bilateral Foraminal Stenosis R>L LE symptoms. Physician: Usman Sanchez Total Fluoroscopy time (seconds): 6 Total sedation minutes: 10 Complications: none Procedure in detail & Post-procedure care: FINDINGS Multilevel Central Spinal Stenosis with Nerve Root Compression DESCRIPTION OF PROCEDURE Fluoroscopically guided, contrast-controlled L4/5 translaminar epidural steroid injection. Following review of allergy and review of potential side effects and complications, including, but not necessarily limited to, infection, allergic reaction, local tissue breakdown, temporary as well as permanent nerve injury, paralysis, stroke and possible , the patient indicated that the patient understood and agreed to proceed. An informed consent document was signed by the patient, witnessed by a nurse, and placed in the patient's chart. Additionally, other treatment options including modalities, medications, and physical therapy were reviewed with the patient. After review of previous anaesthesic history and IV conscious sedation the patient was deemed safe to proceed with today?s procedure with IV conscious sedation as ASA class II designation. Safety time-out was performed to confirm patient ID, procedure to be performed and site of procedure. IV sedation was accomplished with a combination of 2mg of Versed was administered by the RN after DO order, titrated to patient comfort during the course of the procedure while the patient remained responsive to all verbal commands In the prone position, following sterile prep and drape of the lumbar region, the L4/5 translaminar space was identified fluoroscopically. The skin was anesthetized via a 25-gauge, 1.5inch needle with 1% lidocaine solution. At this point, a 22-gauge short bevel spinal needle was atraumatically introduced and advanced under fluoroscopic guidance into the region of the L4/5 translaminar space. Depth was confirmed on lateral view. Radiological data, including multiple fluoroscopic views of the lumbar spine, reveal a spinal needle at the L4/5 translaminar space. Lateral views then show placement of the needle in the epidural space. Subsequent views show contrast material flowing superiorly and inferiorly in the epidural space. No vascular or intrathecal uptake is observed. At this point, using loss of resistance technique with saline and air, the epidural space was entered. This was confirmed following negative aspiration with injection of approximately 1.5cc of Isovue 200, showing excellent epidural flow without vascular or intrathecal uptake. At this point, 1cc of 1% lidocaine solution combined with 2cc or 10mg of dexamethasone and 6mg betamethasone was injected without incident. The patient tolerated the procedure well without signs or symptoms of complications prior to transfer to the recovery area continued monitoring without incident. The patient was then transferred to the recovery area where they were observed for an appropriate period of time after the injection. The patient reported a VAS score of 6 prior to the procedure and a post- procedure VAS of 0. POST OP INSTRUCTIONS The patient was provided a Pain Log to continue to record their response to the target-specific procedure prior to follow-up visit with their referring physician. Additionally, specific post-injection care instructions and a contact number to our office were provided if concerns arise regarding possible complications associated with the procedure are suspected.
== END 2024-08-27 14:12 | disposition home or self-care (01) ==
PROVIDERS: Family Provider Family Medicine; PCP Family Medicine; Referring Provider Physical Medicine & Rehabilitation; Visit Provider Physical Medicine & Rehabilitation
DX: M51.16 Intervertebral disc disorders with radiculopathy, lumbar region (principal); M48.061 Spinal stenosis, lumbar region without neurogenic claudication
CPT/HCPCS: 62323; 99152; J0702; J1100; J2250; J3490

== ENCOUNTER → 2024-09-16 09:56 | Outpatient (CLI) | payer MEDICARE, SELFPAY ==
[2024-09-16 18:38] LABS: Add Manual Diff / Slide Review NO; Basophils Absolute Auto 0 /uL (0-100); Basophils Percent Auto 0.6 % (0-2); Eosinophils Absolute Auto 200 /uL (0-450); Eosinophils Percent Auto 3.5 % (2-4); Hematocrit 51.1 % (41-53); Hemoglobin 17.4 g/dL (13.5-17.5); Lymphocytes Absolute Auto 1500 /uL (1100-4500); Lymphocytes Percent Auto 30.5 % (25-40); Mean Corpuscular HGB Conc 34.1 % (30-36); Mean Corpuscular Hemoglobin 32.9 PG (26-34); Mean Corpuscular Volume 96.7 fL (80-100); Monocytes Absolute Auto 500 /uL (0-900); Monocytes Percent Auto 10.5 % (3-14); Neutrophils Absolute Auto 2600 /uL (1500-7000); Neutrophils Percent Auto 54.9 % (50-75); Platelet Count 196 X10^3/uL (150-400); Red Blood Cell Count 5.28 X10^6/uL (4.5-5.9); Red Cell Distribution Width 13.3 % (11.6-14.8); White Blood Cell Count 4.8 X10^3/uL (4.5-11.0)
[2024-09-16 18:53] LABS: BUN Creatinine Ratio 24.3 (6-22); Blood Urea Nitrogen 25 mg/dL (9-20); Calcium 9.6 mg/dL (8.4-10.2); Carbon Dioxide 29 mmol/L (22-32); Chloride 102 mmol/L (98-107); Cholesterol 225 mg/dL (140-199); Estimated Glomerular Filt Rate > 60 mL/min (>60); Glucose 93 mg/dL (80-110); HDL Cholesterol 75 mg/dL (40-60); HEMOLYSIS 33 (0-50); LDL Cholesterol Calculated 128 mg/dL (<100); Potassium 4.5 mmol/L (3.4-5.1); Sodium 137 mmol/L (137-145); Triglycerides 108 mg/dL (35-150)
== END ==
PROVIDERS: Family Provider Family Medicine; PCP Family Medicine; Visit Provider Family Medicine
DX: I11.0 Hypertensive heart disease with heart failure (principal); I50.21 Acute systolic (congestive) heart failure; I48.20 Chronic atrial fibrillation, unspecified; E83.52 Hypercalcemia; R60.0 Localized edema
CPT/HCPCS: 80048; 80061; 82310; 83970; 85025

== ENCOUNTER → 2024-10-15 14:07 | Outpatient (CLI) | payer MEDICARE, SELFPAY ==
[2024-10-15 19:09] LABS: HEMOLYSIS 23 (0-50); Iron 191 ug/dL (49-181)
[2024-10-15 19:21] LABS: Percent Iron Saturation 52 % (20-50); Total Iron Binding Capacity 367 ug/dL (261-462)
[2024-10-15 19:22] LABS: Erythrocyte Sedimentation Rate 2 MM/HR (0-15)
[2024-10-15 19:24] LABS: Transferrin 318 mg/dL (206-381)
[2024-10-15 19:27] LABS: Free T3, Triiodothyronine Free 3.85 pg/mL (2.77-5.27); Vitamin D 25 Hydroxy (D3) 67.7 ng/mL (30.0-100.0)
[2024-10-15 19:28] LABS: Hemoglobin A1C% w Est Avg Glu 5.7 % (4.0-6.0)
[2024-10-15 19:41] LABS: Thyroid Stimulating Hormone 0.393 uIU/mL (0.47-4.68)
[2024-10-15 19:47] LABS: Ferritin 58 ng/mL (18-464)
[2024-10-15 20:17] LABS: Folate 5.2 ng/mL (2.76-20.0); Vitamin B12 646 pg/mL (239-931)
[2024-10-16 23:08] LABS: CRP, High Sensitivity 0.68 mg/L (0.00-3.00)
== END ==
PROVIDERS: Family Provider Family Medicine; PCP Family Medicine; Visit Provider Naturopath
DX: D50.9 Iron deficiency anemia, unspecified (principal); E55.9 Vitamin D deficiency, unspecified; R53.82 Chronic fatigue, unspecified
CPT/HCPCS: 82306; 82607; 82728; 82746; 83036; 83540; 83550; 84402; 84403; 84439; 84443; 84481; 84482; 85651; 86140

== ENCOUNTER → 2025-04-10 09:02 | Outpatient (CLI) | payer MEDICARE, SELFPAY ==
[2025-04-10 19:12] LABS: Add Manual Diff / Slide Review NO; Hematocrit 50.7 % (41-53); Hemoglobin 17.5 g/dL (13.5-17.5); Lymphocytes Absolute Auto 1400 /uL (1100-4500); Mean Corpuscular HGB Conc 34.5 % (30-36); Mean Corpuscular Hemoglobin 32.9 PG (26-34); Mean Corpuscular Volume 95.3 fL (80-100); Platelet Count 207 X10^3/uL (150-400)
[2025-04-10 19:18] LABS: Blood Urea Nitrogen 28 mg/dL (9-20); Calcium 9.7 mg/dL (8.4-10.2); Carbon Dioxide 28 mmol/L (22-32); Chloride 100 mmol/L (98-107); Cholesterol 185 mg/dL (140-199); Estimated Glomerular Filt Rate > 60 mL/min (>60); Glucose 107 mg/dL (70-99); HDL Cholesterol 86 mg/dL (40-60); HEMOLYSIS 30 (0-50); Potassium 5.0 mmol/L (3.4-5.1); Sodium 136 mmol/L (137-145); Triglycerides 91 mg/dL (35-150)
== END ==
PROVIDERS: Family Provider Family Medicine; PCP Family Medicine; Visit Provider Family Medicine
DX: I50.21 Acute systolic (congestive) heart failure (principal); I48.20 Chronic atrial fibrillation, unspecified; E83.52 Hypercalcemia; I10 Essential (primary) hypertension; D75.1 Secondary polycythemia; Z79.01 Long term (current) use of anticoagulants
CPT/HCPCS: 80048; 80061; 85025